=== PATIENT | female | born 1985 | race Caucasian/White ===

== ENCOUNTER 2017-02-19 15:51 | Emergency (ER) | payer BC, MEDICAID, OTHER, SELFPAY ==
[~2017-02-19] VITALS: Ht 152.4 cm; Wt 50.0 kg
[2017-02-19] MEDS ORDERED: SODIUM CHLORIDE 0.9% 1,000 ML IV ONE (16:08)
[2017-02-19] MEDS ORDERED: TRAM50TA2 PO (16:29)
[2017-02-19] MEDS ORDERED: CLON1TAB23 PO (16:29)
[2017-02-19] MEDS ORDERED: SODIUM CHLORIDE 0.9% 1,000ML IVBOLUS ONE (16:30)
[2017-02-19 16:44] LABS: BLOOD UREA NITROGEN 7 mg/dL (7-18)
[2017-02-19] MEDS ORDERED: FENTANYL PF 100 MCG/2ML ONE (17:38)
[2017-02-19] MEDS ORDERED: ETOMIDATE 20 MG/10 ML ONE (17:38)
[2017-02-19] MEDS ORDERED: FENTANYL PF 100 MCG/2ML IVPush ONE (18:00)
[2017-02-19] MEDS ORDERED: ETOMIDATE 20 MG/10 ML IVPush ONE (18:00)
[2017-02-19] MEDS ORDERED: PROPOFOL 10 MG/ML, 20ML ONE (18:15)
[2017-02-19] MEDS ORDERED: PROPOFOL 10 MG/ML, 100ML IV ONE (18:30)
[2017-02-19 19:38] VITALS: BP 109/72
== END 2017-02-19 19:41 | disposition home or self-care (01) ==
LOC: ED 18:55
DX: S43.085A Other dislocation of left shoulder joint, initial encounter (principal); R55 Syncope and collapse; W01.190A Fall on same level from slipping, tripping and stumbling with subsequent striking against furniture, initial encounter; Y93.89 Activity, other specified; Y92.89 Other specified places as the place of occurrence of the external cause; Y99.8 Other external cause status
CPT/HCPCS: 23650; 36415; 73060; 80048; 82040; 85025; 93005; 96361; 96374; 99152; 99285; J2704; J3010; J7030

== ENCOUNTER 2017-03-20 21:46 | Emergency (ER) | payer OTHER ==
[~2017-03-20] VITALS: Ht 152.4 cm; Wt 49.0 kg
[~2017-03-20 21:46] MED LIST: CLON1TAB23 PO; TRAM50TA2 PO
[2017-03-20 22:55] LABS: HEMATOCRIT 42.4 % (34.6-47.8); HEMOGLOBIN 14.1 g/dL (11.7-16.4); WHITE BLOOD COUNT 15.7 x10^3/uL (3.4-10)
[2017-03-20] MEDS ORDERED: PROPOFOL 10 MG/ML, 20ML ONE (22:56)
[2017-03-20] MEDS ORDERED: PROPOFOL 10 MG/ML, 20ML IVPush ONE (23:00)
[2017-03-20] MEDS ORDERED: SODIUM CHLORIDE 0.9% 1,000ML IVBOLUS ONE (23:00)
[2017-03-20 23:08] LABS: BLOOD UREA NITROGEN 11 mg/dL (7-18)
[2017-03-21 00:32] VITALS: BP 112/74
[2017-03-21] MEDS ORDERED: PROPOFOL 10 MG/ML, 20ML IVPush ONE (01:00)
== END 2017-03-21 00:46 | disposition home or self-care (01) ==
LOC: ED 22:19
DX: S42.252A Displaced fracture of greater tuberosity of left humerus, initial encounter for closed fracture (principal); S43.005A Unspecified dislocation of left shoulder joint, initial encounter; W01.0XXA Fall on same level from slipping, tripping and stumbling without subsequent striking against object, initial encounter; Y93.89 Activity, other specified; Y92.89 Other specified places as the place of occurrence of the external cause; Y99.8 Other external cause status
CPT/HCPCS: 23650; 36415; 73030; 80048; 82040; 84703; 85025; 93005; 99152; 99153; 99285; J2704